=== PATIENT | male | born 1980 | race Caucasian/White ===

== ENCOUNTER 2020-12-02 07:45 | Emergency (ER) | payer SELFPAY ==
[~2020-12-02] VITALS: Ht 175.3 cm; Wt 70.3 kg
[~2020-12-02 07:45] MED LIST: CYCL10 PO; HYDACE5 PO; IBUP800 PO; ISODICACE PO; OXYACE5T PO; RXCYCL10 PO; RXOXYACE PO; SULTRIDS PO
[2020-12-02] MEDS ORDERED: MOTRIN IB200 MG PO (08:11)
[2020-12-02] MEDS ORDERED: PRED20 PO (09:01)
[2020-12-02] MEDS ORDERED: ALBU90OI INH (09:01)
== END 2020-12-02 09:08 | disposition home or self-care (01) ==
LOC: ER 07:45
DX: J40 Bronchitis, not specified as acute or chronic (principal); F17.210 Nicotine dependence, cigarettes, uncomplicated; Z88.0 Allergy status to penicillin; Z88.2 Allergy status to sulfonamides; Z88.1 Allergy status to other antibiotic agents
CPT/HCPCS: 71045; 99283-25

== ENCOUNTER 2025-03-28 19:17 | Emergency (ER) | payer SELFPAY ==
[~2025-03-28] VITALS: Ht 175.3 cm; Wt 63.5 kg
[~2025-03-28 19:17] MED LIST changes: +ALBU90OI INH; +MOTRIN IB200 MG PO; +PRED20 PO
[2025-03-28 20:06] VITALS: BP 148/94
== END 2025-03-28 22:26 | disposition home or self-care (01) ==
LOC: ER 19:17
DX: M79.645 Pain in left finger(s) (principal); W27.8XXA Contact with other nonpowered hand tool, initial encounter; T14.8XXA Other injury of unspecified body region, initial encounter; X58.XXXA Exposure to other specified factors, initial encounter; R21 Rash and other nonspecific skin eruption; F17.210 Nicotine dependence, cigarettes, uncomplicated; Z23 Encounter for immunization; Z88.0 Allergy status to penicillin; Z88.2 Allergy status to sulfonamides; Z88.1 Allergy status to other antibiotic agents; Z79.899 Other long term (current) drug therapy
CPT/HCPCS: 73130; 90471; 90715; 99283-25